=== PATIENT | male | born 1955 | race Caucasian/White ===

== ENCOUNTER 2017-09-17 11:31 | Outpatient (CLI) | END 2017-09-17 11:32 | disposition home or self-care (01) | LOC: FCC-LAB 11:31 | PROVIDERS: ATTEND Family Medicine | DX: E11.9 Type 2 diabetes mellitus without complications (principal); I10 Essential (primary) hypertension; E78.2 Mixed hyperlipidemia | CPT/HCPCS: 36415; 80053; 80061; 83037 ==

== ENCOUNTER 2018-08-12 09:33 | Outpatient (CLI) | END 2018-08-12 09:34 | disposition home or self-care (01) | LOC: RHC-LAB 09:33 → FCC-LAB 09:34 | PROVIDERS: ATTEND Family Medicine | DX: S41.132A Puncture wound without foreign body of left upper arm, initial encounter (principal); E11.9 Type 2 diabetes mellitus without complications; I10 Essential (primary) hypertension; Z95.1 Presence of aortocoronary bypass graft; E78.2 Mixed hyperlipidemia | CPT/HCPCS: 36415; 80053; 80061; 80306; 83037; 85025 ==